=== PATIENT | female | born 1975 | race Caucasian/White ===

== ENCOUNTER 2016-07-18 11:45 | Emergency (ER) | payer OTHER ==
[~2016-07-18] VITALS: Ht 152.4 cm; Wt 47.1 kg
[~2016-07-18 11:45] MED LIST: ALBUAER INH; ALPR-411 PO; AMPH20TA2 PO; CITA20TA9 PO; HYDR-3419 PO
[2016-07-18 12:04] VITALS: TEMP 36.5; Ht 152.4 cm; Wt 47.1 kg
[2016-07-18] MEDS ORDERED: MoRPHine SULFATE 4 MG/ML 1 ML CARP\\VIAL IV STA (12:28)
[2016-07-18] MEDS ORDERED: SODIUM CHLORIDE 0.9% 1000ML 1,000 ML IV STA (12:28)
[2016-07-18] MEDS ORDERED: CLINDAMYCIN IV 900 MG in DEXTROSE 5% ADD-VANTAGE 100ML 100 ML IV ONE (12:30)
--- NOTE | 2016-07-18 12:32 | EMERGENCY ROOM VISIT NOTE ---
History First contact with patient: 12:18 Chief Complaint: FACIAL PAIN/INJURY Stated Complaint: SWELLING AND PAIN IN FACE History of Present Illness The patient is a 40 year old female who presents to the Emergency Room with complaints of dental infection. The patient states that she woke up this morning with pain and swelling in the left jaw. She states that she has a broken left lower tooth which has been painful. She rates her discomfort an 8/ 10. Denies any fevers or chills. She denies any earache, sore throat or cough. She denies any swelling beneath her tongue. She reports a history of dental pain and dental infections but never this bad. She states she does not have a dentist. Review of Systems A 10 system review of systems was completed with positives and pertinent negatives listed in the HPI. Past Medical/Surgical History Medical Problems: (1) Asthma (2) Removal of ureteral stent (3) Tonsillectomy Social History Smoking Status: Current Every Day Smoker Marital Status: single Occupation Status: unemployed Current/Historical Medications Scheduled Amphetamine-Dextroamphetamine 20MG (Adderall 20MG), 20 MG PO QAM Citalopram Hydrobromide (Celexa), 20 MG PO QAM Clindamycin Hcl (Cleocin), 300 MG PO QID Scheduled PRN Albuterol Sulfate (Proventil Hfa), 2 PUFFS INH Q4 PRN for SOB/Wheezing Alprazolam (Xanax), 0.5 MG PO TID PRN for Anxiety Hydrocodon/Acetaminophen 5MG/300MG (Vicodin (5MG/300MG)), 1 TAB PO Q6H PRN for Pain Oxycodone Ir (Roxicodone Ir), 1-2 TAB PO Q4H PRN for Pain Allergies Coded Allergies: Penicillins (Verified Allergy, Unknown, RASH, 07/04/15) SPOKE WITH PATIENT ON 07/02/15: TOLERATED KEFLEX PO IN THE PAST Physical Exam Vital Signs Date Time Temp Pulse Resp B/P Pulse Ox O2 Delivery O2 Flow Rate FiO2 07/18/16 14:30 76 18 112/62 100 07/18/16 12:04 36.5 90 18 104/72 97 Room Air Physical Exam VITALS: Vitals are noted on the nurse's note and reviewed by myself. Vital signs stable. The patient is afebrile. GENERAL: This is a 40-year-old female, in no acute distress, nondiaphoretic, well-developed well-nourished. SKIN: The skin was without rashes, erythema, or bruising. There is no tenting of the skin. Capillary reflex less than 2 seconds. HEAD: Normocephalic atraumatic. EARS: External auditory canals clear, tympanic membranes pearly wheeler without erythema or effusion bilaterally. EYES: Pupils equal round and reactive to light and accommodation. Conjunctivae without injection, sclerae without icterus. Extraocular movements intact. NOSE: Patent, turbinates without inflammation or discharge. MOUTH: Mucous membranes moist. Tonsils are not enlarged. Pharynx without erythema or exudate. Uvula midline. Airway patent. Tongue does not deviate. There is moderate left jaw swelling. There is marked tenderness to palpation to the left lower tooth. There is no obvious discharge. There is no lymphadenopathy. There is no swelling beneath the tongue. NECK: Supple without nuchal rigidity. No lymphadenopathy. No thyromegaly. Cervical spine is nontender. No JVD. HEART: Regular rate and rhythm without murmurs gallops or rubs. LUNGS: Clear to auscultation bilaterally without wheezes, rales or rhonchi. No dullness to percussion. No retractions or accessory muscle use. MUSCULOSKELETAL: No muscle atrophy, erythema, or edema noted. Full range of motion in all extremities. Normal gait. Strength 5/5 throughout. NEURO: Patient was alert and oriented to person place and time. No focal neurological deficits. Medical Decision & Procedures Laboratory Results 07/18/16 12:50 Red Blood Count 4.24, Mean Corpuscular Volume 94.3, Mean Corpuscular Hemoglobin 34.2, Mean Corpuscular Hemoglobin Concent 36.3, Mean Platelet Volume 9.0, Neutrophils (%) (Auto) 70.9, Lymphocytes (%) (Auto) 22.2, Monocytes (%) (Auto) 5.7, Eosinophils (%) (Auto) 0.6, Basophils (%) (Auto) 0.3, Neutrophils # (Auto) 7.78, Lymphocytes # (Auto) 2.43, Monocytes # (Auto) 0.63, Eosinophils # (Auto) 0.07, Basophils # (Auto) 0.03 07/18/16 12:50 Test 07/18/16 12:50 White Blood Count 10.97 K/uL (4.8-10.8) Red Blood Count 4.24 M/uL (4.2-5.4) Hemoglobin 14.5 g/dL (12.0-16.0) Hematocrit 40.0 % (37-47) Mean Corpuscular Volume 94.3 fL (80-100) Mean Corpuscular Hemoglobin 34.2 pg (25-34) Mean Corpuscular Hemoglobin Concent 36.3 g/dl (32-36) Platelet Count 260 K/uL (130-400) Mean Platelet Volume 9.0 fL (7.4-10.4) Neutrophils (%) (Auto) 70.9 % Lymphocytes (%) (Auto) 22.2 % Monocytes (%) (Auto) 5.7 % Eosinophils (%) (Auto) 0.6 % Basophils (%) (Auto) 0.3 % Neutrophils # (Auto) 7.78 K/uL (1.4-6.5) Lymphocytes # (Auto) 2.43 K/uL (1.2-3.4) Monocytes # (Auto) 0.63 K/uL (0.11-0.59) Eosinophils # (Auto) 0.07 K/uL (0-0.5) Basophils # (Auto) 0.03 K/uL (0-0.2) RDW Standard Deviation 42.7 fL (36.4-46.3) RDW Coefficient of Variation 12.5 % (11.5-14.5) Immature Granulocyte % (Auto) 0.3 % Immature Granulocyte # (Auto) 0.03 K/uL (0.00-0.02) Anion Gap 8.0 mmol/L (3-11) Est Creatinine Clear Calc Drug Dose 70.5 ml/min Estimated GFR () 112.7 Estimated GFR (Non- 97.3 BUN/Creatinine Ratio 12.8 (10-20) Calcium Level 9.0 mg/dl (8.5-10.1) Total Bilirubin 0.6 mg/dl (0.2-1) Aspartate Amino Transf (AST/SGOT) 12 U/L (15-37) Alanine Aminotransferase (ALT/SGPT) 17 U/L (12-78) Alkaline Phosphatase 60 U/L (45-117) Total Protein 7.3 gm/dl (6.4-8.2) Albumin 3.7 gm/dl (3.4-5.0) Globulin 3.6 gm/dl (2.5-4.0) Albumin/Globulin Ratio 1.0 (0.9-2) Medications Administered Medications (Trade) Dose Ordered Sig/Ron Route Start Time Stop Time Status Last Admin Dose Admin Sodium Chloride (Nss 1000ml) 1,000 ml @ 999 mls/hr Q1H1M STAT IV 07/18/16 12:28 07/18/16 13:28 DC 07/18/16 13:05 999 MLS/HR Morphine Sulfate 4 mg 4 mg NOW STAT IV 07/18/16 12:28 07/18/16 12:30 DC 07/18/16 13:06 4 MG Clindamycin Phosphate/Dextrose (Cleocin Iv/ Dextrose Add-Red Level 100ML) 106 ml @ 100 mls/hr ONE ONCE IV 07/18/16 12:30 07/18/16 13:33 DC 07/18/16 13:04 100 MLS/HR ED Course The patient was seen and examined. Previous visits were reviewed. The patient does not have a fever. She does have a leukocytosis of 10.97. She does not have any significant electrolyte abnormalities. She was hydrated with normal saline She was given 4 mg IV morphine and 900 mg IV clindamycin The patient appears to have a dental infection. She has left lower jaw swelling and tenderness to palpation of a broken, carious lower tooth. She'll be treated with clindamycin and given a prescription for pain medication. She should contact a dentist for definitive management. She should return if she has no improvement in 24-48 hours and sooner if she has any worsening swelling, fevers, swelling beneath her tongue, neck pain or neck swelling. Medical Decision The differential diagnosis includes dental abscess, viral illness, Miguel's angina, among others [place] Drug Monitoring Program Search Results: patient reviewed within database, see additional documentation Drug Monitoring Findings: The patient does have a prescription for narcotics which she uses for chronic back pain and arthritis. Given the significant swelling to her jaw and likely infection, I did elect to give her a prescription for oxycodone. Impression Primary Impression: Dental abscess Departure Information Dispostion Home / Self-Care Condition GOOD Prescriptions Oxycodone Ir (Roxicodone Ir) 5 Mg Tab 1-2 TAB PO Q4H Y for Pain, #20 TAB For Initial Treatment Prov: Johanna Purvis PA-C 07/18/16 Clindamycin Hcl (CLEOCIN) 300 Mg Cap 300 MG PO QID for 7 Days, #28 CAP Prov: Johanna Purvis PA-C 07/18/16 Referrals Rubens Mei D.OMaria D (PCP) Basil Arcos D.D.SMaria D Patient Instructions Dental Abscess, [facility] Additional Instructions Ibuprofen 600 mg every 6-8 hours or moderate pain Oxy IR 1-2 tablets every 4-6 hrs as needed for worse pain. No driving or alcohol use with Oxy IR. Clindamycin every 6 hours for 7 days Return to the emergency department with worsening pain, swelling, fever Otherwise, follow up with a dentist for further evaluation and management Return with any worsening symptoms
[2016-07-18] MEDS ORDERED: ALBUAER INH (12:42)
[2016-07-18 13:03] LABS: BASO % 0.3 %; BASO ABS # 0.03 K/uL (0-0.2); COMPLETE YES; EOS % 0.6 %; IG% 0.3 %; LYMPH % 22.2 %; LYMPH ABS # 2.43 K/uL (1.2-3.4); MEAN CELL VOLUME 94.3 fL (80-100); MEAN CORPUSCULAR HEMOGLOBIN 34.2 pg (25-34); MEAN CORPUSCULAR HGB CONC 36.3 g/dl (32-36); MONO % 5.7 %; NEUT % 70.9 %; PLATELET COUNT 260 K/uL (130-400); RED BLOOD COUNT 4.24 M/uL (4.2-5.4); WHITE BLOOD COUNT 10.97 K/uL (4.8-10.8)
[2016-07-18 13:19] LABS: BUN/CREATININE RATIO 12.8 (10-20); CREATININE 0.77 mg/dl (0.60-1.20); POTASSIUM 3.7 mmol/L (3.5-5.1)
[2016-07-18] MEDS ORDERED: OXYC1TAB3 PO (14:15)
[2016-07-18] MEDS ORDERED: CLIN300C2 PO (14:15)
[2016-07-18 14:30] VITALS: BP 112/62; PULSE 76; O2SAT 100
== END 2016-07-18 14:32 | disposition home or self-care (01) ==
LOC: C.EDB 11:47 → C.EDD 14:32
DX: K04.7 Periapical abscess without sinus (principal); J45.909 Unspecified asthma, uncomplicated; F17.200 Nicotine dependence, unspecified, uncomplicated